=== PATIENT | male | born 1950 | race Hispanic/Latino ===

== ENCOUNTER 2024-11-26 05:40 | Observation (INO) | payer MEDICARE ==
[2024-11-25 11:15] VITALS: BP 157/58; PULSE 54; RESP 14; TEMP 97.2
[2024-11-25 11:28] LABS: IMMATURE GRANULOCYTE ABSOLUTE 0.02 K/uL (0-1); NUCLEATED RED BLOOD CELLS 0.0 % (0.0-0.19); PLATELET COUNT (AUTO) 196 K/uL (130-400); RED BLOOD CELL COUNT(AUTO) 4.88 MIL/uL (4.50-6.20); RED CELL DISTRIBUTION WIDTH 13.2 % (11.0-15.5); WHITE BLOOD COUNT (AUTO) 7.9 K/uL (4.8-10.8)
--- NOTE | 2024-11-25 11:30 | NUR ---
RE: IS INITIAL IS INITIAL TEACHING DONE BY RT GRETCHEN DURING PREOP.
[2024-11-25 11:32] LABS: APPEARANCE,URINE CLEAR (CLEAR); GLUCOSE, URINE (UA) NEGATIVE (NEGATIVE); LEUKOCYTE ESTERASE ,URINE NEGATIVE Leu/uL (NEGATIVE); NITRATE,URINE NEGATIVE (NEGATIVE); OCCULT BLOOD,URINE NEGATIVE (NEGATIVE)
[2024-11-25 11:35] LABS: ADD UA MICROSCOPIC NO
[2024-11-25 11:44] LABS: INR 1.02 (0.85-1.15)
--- NOTE | 2024-11-25 12:23 | EKG ---
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
--- NOTE | 2024-11-25 15:18 | NUR ---
RE: ASPIRIN INFORMED DR RIOS THAT PATIENT'S LAST DOSE OF ASPIRIN 81MG WAS 11/24/24 AT 2100. OK TO PROCEED.
[~2024-11-26] VITALS: Ht 160 cm; Wt 77.6 kg
[2024-11-26] VITALS (32 sets, daily range): BP systolic 114–154; BP diastolic 46–97; PULSE 51–74; RESP 16–18; TEMP 97.4–98.2; O2SAT 98
[~2024-11-26 05:40] MED LIST: AMLO-257 PO; ASPI-1443 PO; ATOR10 PO; HYDR12.54 PO; LOSA100T59 PO; METF-446 PO; METO-409 PO; TAMS-55 PO
[2024-11-26] MEDS: 0.9%NACL 1000ML 1,000 ML IV ONE (06:51)
[2024-11-26] MEDS ORDERED: LIDOCAINE PF 100MG/5ML (2%) SYRINGE 5ML ONE (07:29)
[2024-11-26] MEDS ORDERED: MIDAZOLAM HCL 1 MG/ML 2ML VIAL ONE (07:29)
[2024-11-26] MEDS ORDERED: NEOSTIGMINE METHYLSULFATE 1MG/ML IV ONE (07:32)
[2024-11-26] MEDS ORDERED: GLYCOPYRROLATE 0.2 MG/ML 5 ML VIAL ONE (07:32)
[2024-11-26] MEDS: TRANEXAMIC ACID 1000MG/10ML ONE ×2 (08:15→10:54)
[2024-11-26] MEDS: VANCOMYCIN 500MG+NS 100ML 100 ML IV ONE (09:10)
--- NOTE | 2024-11-26 10:27 | OP ---
Operative Note: DATE OF PROCEDURE: 11/26/24 SURGEON: DOLORES RIOS MD TREE WRAPPER: [Alex Yadav GEOMETRICIAN] ANESTHESIA: [General anesthesia plus regional block] ANESTHESIOLOGIST/CLAIMS AGENT RIGHT OF WAY: [Feroz Sullivan CLAIMS AGENT RIGHT OF WAY] PREOPERATIVE DIAGNOSIS: [Left Knee osteoarthritis] POSTOPERATIVE DIAGNOSIS: [Left knee osteoarthritis] IMPLANTS: [Biomet vanguard femur size 70 left PS. Tibia size 79 fixed cruciate. Tibial liner size 10 x 79/83. Patella size 34 X 9 asymmetric] PROCEDURE: [Left total knee arthroplasty] ESTIMATED BLOOD LOSS: [Less than 100 mL] INDICATIONS: [The patient is a 74-year-old male with a history of chronic pain to the left knee that has a longer responded to conservative treatment. The patient has been admitted for a left total knee arthroplasty. Procedure understood, risks, benefits and possible complications and the patient agreed to sign the consent form.] DESCRIPTION OF PROCEDURE: [After adequate general anesthesia was achieved and regional block obtained the left lower extremity was prepped and draped in the usual manner previous placement of the tourniquet in the proximal thigh. The extremity was then elevated and exsanguinated with an Esmarch bandage and the tourniquet inflated to 300 mmHg the Esmarch band been then removed. With the knee in flexion a longitudinal incision was then made in the anterior aspect through the skin followed by dissection of the subcutaneous tissue. A bone infusion needle was then inserted just medial to the tibial tuberosity and through this needle we injected into the bone a solution of normal saline 50 mL mixed with 500 mg of vancomycin. The needle was removed. A paramedian approach was then made with the Bovie cautery cutting through the quadriceps tendon, medial patellar retinaculum and patellar tendon retinaculum. The retropatellar tendon fat was then excised and the soft tissue elements of the tibia were severiano vated subperiosteally and retractors were applied medially and laterally . The anterior and posterior cruciate ligaments were resected. With the use of a drill a starting hole was made in the distal femur entering the intramedullary canal and then after removal of the drill an intramedullary guide was inserted with a 5 degree valgus block that touched the distal femur and to this the distal femoral cutting guide was then applied anteriorly and was secured to the distal femur with the use of pins. The intramedullary guide was then removed and with the use of the oscillating saw we proceeded to resect the distal femur removing the fragments and the guide. The femoral sizer was then applied distally and drill holes were made removing the sizer and the 4-in-1 cutting block was then inserted and the anterior, posterior and chamfer cuts were made removing the fragments and the block. The PS cutting guide was then inserted and the intercondylar cut was made removing the fragment and the guide. The posterior cruciate ligament retractor was then inserted posterior to the tibia and this was brought forward proceeding then to apply the external tibial alignment guide and secured the proximal cutting guide to the tibia with the use of pins. With the use of the oscillating saw the proximal cut to the tibia tibia was made. The bone fragment was removed and the trial tibia plate was chosen. At this point the menisci were removed sharply and with the use of the curved osteotome the posterior osteophytes of the femur were removed. The trial components were then inserted at the femur and tibia with a trial tibial liner bringing the knee into extension noticing that the patient had a very stable knee in flexion, extension and with valgus and varus stress. The knee was ma intained in extension and the patella was then addressed proceeding to measure its thickness and then with the use of the oscillating saw we removed 9 mm from the articular surface and restored the height with application of a trial component after 3 peg holes were made. The patellofemoral ligament was removed and then the patellofemoral tracking was checked noticing to be normal. At this moment all the components were removed, the tibia after the metaphyseal defect was created and while cement was being mixed on the back table we proceeded to irrigate the joint with antibiotic solution and then cover the entry to the femoral canal with a bone plug. Once the cement was ready we proceeded to apply it first to the tibia surface inserting the final component and then to the femoral surface and inserted the final component removing the excess cement and then applying a trial liner bringing the knee into extension for compression. Then we proceeded to irrigate the patella surface and dried it applying then bone cement and the final patellar component was inserted and was secured with application of a clamp. The joint was irrigated with a warm diluted Betadine solution while the cement dried followed by irrigation with antibiotic solution. The trial liner was removed as well as the patellar clamp and we proceeded then to irrigate the posterior aspect of the joint to remove all the remaining debris and the final tibial liner was inserted and locked against the tibia. The range of motion was checked and noticed to be adequate with full extension and flexion, no laxity in valgus or varus stress and with adequate patellofemoral tracking. The patient had no anterior or posterior drawer. The tourniquet was then deflated and this was followed by hemostasis and the wound was then closed with approximation of the quadriceps tendon, patellar retinaculum and patellar tendon retinaculum with #1 Vicryl close stitches alternating with #1 Ethibond stitches, and closure of the subcutaneous tissue with 2-0 Monocryl inverted stit ches and the skin was closed with 3-0 Monocryl subcuticularly. The wound was covered with a suction dressing followed by application of an Je bandage for compression and the drapes were then removed transferring the patient to the hospital bed and taken to recovery room for follow-up by anesthesia. There were no complications during the procedure.] DOLORES RIOS MD Nov 26, 2024 10:27
[2024-11-26] MEDS: 0.9%NACL 1000ML 1,000 ML IV SCH (10:30)
[2024-11-26] MEDS ORDERED: FERROUS FUMARATE 324 MG TABLET PO PRN (10:30)
[2024-11-26] MEDS ORDERED: PoTASSium chl 10% ELIXIR 20MEQ 20 MEQ/15 ML UDCUP PO PRN (10:30)
[2024-11-26] MEDS ORDERED: CALCIUM CARB 500MG PO PRN (10:30)
[2024-11-26] MEDS: HYDROcodone/APAP 5/325 1 TAB TABLET ONE (12:35)
[2024-11-26] MEDS: HYDROcodone/APAP 5/325 1 TAB TABLET PO PRN (12:35)
--- NOTE | 2024-11-26 14:30 | NUR ---
PATIENT ARRIVED TO THE UNIT. VS: 140/75, 57 BPM, 97% SP02 AT 3 L NC. A&OX4. CAP REFILL <3 SECS ON LLE. BLE PULSES STRONG AND PRESENT. 4/5 PAIN REPORTED. CALL LIGHT WITHIN REACH. BED LOCKED AND LOW.
[2024-11-26] MEDS ORDERED: ASPI-1443 PO (14:39)
--- NOTE | 2024-11-26 17:46 | NUR ---
PT WAS REINFORCED TEACHING ON THE IMPORTANCE OF THE USE OF THE IS Q2H 10 BREATHS. PT VERBALIZED UNDERSTANDING. ASSESSED PT FOR PAIN. PT VERBALIZED 0/10 PAIN. PT WAS EDUCATED ON THE IMPORTANCE OF MANAGING PAIN AND TO CALL THE NURSE SOON PAIN IS PRESENT TO MAINTAIN BELOW A 4. PT VERBALIZED UNDERSTANDING. NO FURTHER NEEDS ADDRESSED.
[2024-11-26] MEDS: ASPIRIN 81 MG EC TAB PO SCH (22:07)
[2024-11-26] MEDS: FAMOTIDINE 20MG TAB PO SCH (22:08)
[2024-11-27 02:29] VITALS: O2SAT 93
[2024-11-27 04:38] VITALS: BP 111/70; PULSE 75; RESP 18; TEMP 98.1
[2024-11-27 05:09] LABS: NUCLEATED RED BLOOD CELLS 0.0 % (0.0-0.19); PLATELET COUNT (AUTO) 149.0 K/uL (130-400); RED BLOOD CELL COUNT(AUTO) 3.66 MIL/uL (4.50-6.20); RED CELL DISTRIBUTION WIDTH 13.2 % (11.0-15.5); WHITE BLOOD COUNT (AUTO) 13.4 K/uL (4.8-10.8)
[2024-11-27 05:27] LABS: CREATININE 1.2 mg/dL (0.5-1.3); GLOMERULAR FILTR. RATE CALC 64.0 mL/min (>90); GLUCOSE,RANDOM 159.0 mg/dL (70-105); SODIUM SERUM 137.0 mmol/L (136-145); UREA NITROGEN, BLOOD 16.0 mg/dL (7-18)
[2024-11-27] MEDS: PoTASSium chloRIDE 20MEQ ER 20 MEQ ERTAB PO PRN (05:50)
[2024-11-27 07:44] VITALS: BP 142/76; PULSE 69; RESP 18; TEMP 98.1
--- NOTE | 2024-11-27 07:54 | PN ---
Ortho postop day one. This morning the patient is awake alert and oriented. Reporting no significant pain. He is in no acute distress. He is seated out of bed in a chair enjoying his breakfast. He has a footstool and he has been alternating extension and flexion while seated. Vital signs have been stable he is afebrile. Laboratory results reviewed. Noted to have a drop in hemoglobin and hematocrit as expected after total knee arthroplasty. Patient is currently asymptomatic we will continue to observe and treat per protocol as necessary. Operative findings discussed with the patient. He is voiding on his own. He is already passing gas but no BM yet. Dressing intact corey dressing flashing green. Bilateral lower extremity SCD stockings present. The gastrocnemius a soft nontender. Ice present to the extremity. And ambulated yesterday with physical therapy about 10 ft and is pending further physical therapy this morning. Anticipated discharge goal is home health/PT. Assessment: Status post left total knee arthroplasty. Acute postoperative blood loss anemia. Plan: Continue with Dr. Wilder TKA protocol and discharge planning. Acute postoperative blood loss anemia addressed with the protocol as necessary Vitals/Labs Vital Signs Date Time Temp Pulse Resp B/P (MAP) Pulse Ox O2 Delivery O2 Flow Rate FiO2 11/27/24 07:44 98.1 69 18 142/76 94 Room Air 11/27/24 02:29 3 32 Laboratory Tests 11/27/24 05:00 Medications Current Medications Cefazolin Sodium 2 gm STK-MED ONCE .ROUTE Last administered on 11/26/24at 08:18; Start 11/26/24 at 06:25; Stop 11/26/24 at 06:25; Status DC Sodium Chloride 1,000 ml @ As Directed STK-MED ONCE IV Last administered on 11/26/24at 06:51; Start 11/26/24 at 06:25; Stop 11/26/24 at 06:25; Status DC Midazolam HCl 2 mg STK-MED ONCE .ROUTE; Start 11/26/24 at 07:29; Stop 11/26/24 at 07:29; Status DC Lidocaine HCl 100 mg STK-MED ONCE .ROUTE; Start 11/26/24 at 07:29; Stop 11/26/24 at 07:29; Status DC Propofol 200 mg STK-MED ONCE IV; Start 11/26/24 at 07:30; Stop 11/26/24 at 07:30; Status DC Rocuronium [place] 50 mg STK-MED ONCE .ROUTE; Start 11/26/24 at 07:30; Stop 11/26/24 at 07:30; Status DC Fentanyl Citrate 100 mcg STK-MED ONCE .ROUTE; Start 11/26/24 at 07:31; Stop 11/26/24 at 07:31; Status DC Dexamethasone Sodium Phosphate 4 mg STK-MED ONCE .ROUTE; Start 11/26/24 at 07:32; Stop 11/26/24 at 07:32; Status DC Ondansetron HCl 4 mg STK-MED ONCE .ROUTE; Start 11/26/24 at 07:32; Stop 11/26/24 at 07:32; Status DC Glycopyrrolate 1 mg STK-MED ONCE .ROUTE; Start 11/26/24 at 07:32; Stop 11/26/24 at 07:32; Status DC Neostigmine Methylsulfate 10 mg STK-MED ONCE IV; Start 11/26/24 at 07:32; Stop 11/26/24 at 07:32; Status DC Ropivacaine 150 mg STK-MED ONCE .ROUTE; Start 11/26/24 at 07:38; Stop 11/26/24 at 07:38; Status DC Acetaminophen 100 ml @ As Directed STK-MED ONCE .ROUTE; Start 11/26/24 at 07:38; Stop 11/26/24 at 07:39; Status DC Ketamine HCl 50 mg STK-MED ONCE .ROUTE; Start 11/26/24 at 07:39; Stop 11/26/24 at 07:39; Status DC Tranexamic Acid 1,000 mg STK-MED ONCE .ROUTE Last administered on 11/26/24at 08:15; Start 11/26/24 at 07:56; Stop 11/26/24 at 07:55; Status DC Cefazolin Sodium 1 gm STK-MED ONCE .ROUTE Last administered on 11/26/24at 09:06; Start 11/26/24 at 08:10; Stop 11/26/24 at 08:11; Status DC Vancomycin HCl 100 ml @ As Directed STK-MED ONCE IV Last administered on 11/26/24at 09:10; Start 11/26/24 at 08:11; Stop 11/26/24 at 08:11; Status DC Sodium Chloride 1,000 ml @ 100 mls/hr Q10H IV Last administered on 11/26/24at 22:09; Start 11/26/24 at 10:30; Stop 11/27/24 at 10:29 Polyethylene Glycol 17 gm DAILY PO; Start 11/27/24 at 09:00; Stop 12/27/24 at 08:59 Bisacodyl 10 mg DAILY PRN RC; Start 11/29/24 at 10:30; Stop 12/29/24 at 10:29 Ketorolac Tromethamine 15 mg Q6H PRN IV Last administered on 11/26/24at 14:55; Start 11/26/24 at 10:30; Stop 12/01/24 at 10:29 Famotidine 20 mg BID PO Last administered on 11/26/24at 22:08; Start 11/26/24 at 21:00; Stop 12/26/24 at 20:59 Tamsulosin HCl 0.4 mg HS PO Last administered on 11/26/24at 22:07; Start 11/26/24 at 21:00; Stop 12/26/24 at 20:59 Ferrous Fumarate 324 mg DAILY PRN PO; Start 11/26/24 at 10:30; Stop 12/26/24 at 10:29 Temazepam 15 mg HS PRN PO; Start 11/26/24 at 10:30; Stop 12/26/24 at 10:29 Ondansetron HCl 4 mg Q6H PRN IVP; Start 11/26/24 at 10:30; Stop 12/26/24 at 10:29 Calcium Carbonate 500 mg Q12H PRN PO; Start 11/26/24 at 10:30; Stop 12/26/24 at 10:29 Diphenhydramine HCl 25 mg Q6H PRN IVP; Start 11/26/24 at 10:30; Stop 12/26/24 at 10:29 Insulin Human Regular INSULIN SLIDING SCAL... ACHS SQ Last administered on 11/26/24at 22:05; Start 11/26/24 at 11:30; Stop 12/26/24 at 11:29 Cefazolin Sodium 2 gm Q8H IVP Last administered on 11/26/24at 23:23; Start 11/26/24 at 15:30; Stop 11/26/24 at 23:31; Status DC Potassium Chloride 100 ml @ 100 mls/hr AD PRN IV; Start 11/26/24 at 10:30; Stop 12/26/24 at 10:29 Potassium Chloride 20 meq AD PRN PO; Start 11/26/24 at 10:30; Stop 12/26/24 at 10:29 Potassium Chloride 20 meq AD PRN PO Last administered on 11/27/24at 05:50; Start 11/26/24 at 10:30; Stop 12/26/24 at 10:29 Celecoxib 200 mg BID PO Last administered on 11/26/24at 22:07; Start 11/26/24 at 21:00; Stop 12/26/24 at 20:59 Acetaminophen/ Hydrocodone Bitart Q4H PRN PO Last administered on 11/26/24at 18:53; Start 11/26/24 at 10:30; Stop 12/01/24 at 10:29 Aspirin 81 mg BID PO Last administered on 11/26/24at 22:07; Start 11/26/24 at 21:00; Stop 12/26/24 at 20:59 Fentanyl Citrate 100 mcg STK-MED ONCE .ROUTE; Start 11/26/24 at 10:31; Stop 11/26/24 at 10:31; Status DC Tranexamic Acid 1,000 mg STK-MED ONCE .ROUTE Last administered on 11/26/24at 10:54; Start 11/26/24 at 10:50; Stop 11/26/24 at 10:50; Status DC Fentanyl Citrate 100 mcg STK-MED ONCE .ROUTE Last administered on 11/26/24at 11:07; Start 11/26/24 at 11:03; Stop 11/26/24 at 11:04; Status DC Acetaminophen/ Hydrocodone Bitart 1 tab STK-MED ONCE .ROUTE; Start 11/26/24 at 12:32; Stop 11/26/24 at 12:32; Status DC Amlodipine Besylate 5 mg DAILY PO; Start 11/27/24 at 09:00; Stop 12/27/24 at 08:59 Atorvastatin Calcium 10 mg DAILY PO; Start 11/27/24 at 09:00; Stop 12/27/24 at 08:59 Losartan Potassium 100 mg HS PO Last administered on 11/26/24at 22:07; Start 11/26/24 at 21:00; Stop 12/26/24 at 20:59 Tamsulosin HCl 0.4 mg DAILY PO; Start 11/27/24 at 09:00; Stop 12/27/24 at 08:59; Status UNV Hydrochlorothiazide 12.5 mg DAILY PO; Start 11/27/24 at 09:00; Stop 12/27/24 at 08:59 Metformin HCl 1,000 mg BIDMEALS PO Last administered on 11/26/24at 17:39; Start 11/26/24 at 17:00; Stop 12/26/24 at 16:59 Metoprolol Succinate 100 mg BID PO Last administered on 11/26/24at 22:08; Start 11/26/24 at 21:00; Stop 12/26/24 at 20:59 BERNICE GRANDA NP Nov 27, 2024 07:54
[2024-11-27 09:10] VITALS: O2SAT 94
[2024-11-27] MEDS: amLODIPine 5 MG TAB PO SCH (09:11)
[2024-11-27 11:15] VITALS: BP 144/66; PULSE 63; RESP 16; TEMP 97.8
--- NOTE | 2024-11-27 11:40 | NUR ---
[facility] CM MET WITH PT AND SPOUSE THIS MORNING, INITIAL ASSESSMENT DONE. PATIENT IS INDEPENDENT PRIOR TO SURGERY, LIVES AT HOME WITH HIS , BROTHER IN LAW LIVES WITH THEM AT HOME. AT HOME PATIENT HAS A SHOWER CHAIR, GLUCOMETER, PO MED FOR DM, BPM. DENIES ANY OTHER EQUIPMENT/SERVICES. FEELS SAFE TO GO BACK HOME, STILL DRIVE, SPOUSE AND BROTHER IN LAW ABLE TO ASSIST WITH TRANSPORTATION NECESSARY. DISCUSSED MD RECOMMENDATIONS FOR HOME W/HH PT WILL NEED PT WELL A STANDARD WALKER AT HOME. PT AGREEABLE, CONSENT SIGNED DAVIN FOR ANY IN NETWORK HH AND DME. [facility] HOME W/HH AND DME ONCE APPROVED. CM TO CONTINUE TO FOLLOW UP. Addendum: 11/27/24 at 1453 by ZOE VALDEZ LVN Amended: Links added.
[2024-11-27 15:24] VITALS: BP 137/71; PULSE 60; RESP 17; TEMP 97.9
--- NOTE | 2024-11-27 15:30 | NUR ---
CM NOTE: PETRONA GARCIA CM MET WITH PT THIS AFTERNOON, PETRONA GARCIA CONSENT SIGNED IN CASE PATIENT WILL DC HOME TODAY/TOMORROW. PT AWARE PENDING APPROVAL AND DELIVERY FOR OWN STANDARD WALKER W/[facility] DME. INSTRUCTED PT TO RETURN BORROWED HOSPITAL WALKER IN ED W/SECURITY ONCE OWN WALKER RECEIVED AT HOME. PT VERBALIZED UNDERSTANDING. CM TO CONTINUE TO FOLLOW UP.
[2024-11-27] MEDS ORDERED: HYDR-4060 PO (16:34)
[2024-11-27] MEDS ORDERED: ASPI-1443 PO (16:34)
--- NOTE | 2024-11-27 16:43 | PN ---
Postop day 2. Status post left total knee arthroplasty Signs haylie, afebrile The patient did very well with the physical therapy today His pain control is adequate Is eating well, has voided. Awake, alert and oriented x3. In no respiratory distress Dressing intact. Distal neurovascular exam normal. The knee has mild edema. Assessment: Status post left total knee arthroplasty Plan: The patient will be dismissed today. Follow-up in the office in three weeks Vitals/Labs Vital Signs Date Time Temp Pulse Resp B/P (MAP) Pulse Ox O2 Delivery O2 Flow Rate FiO2 11/27/24 15:24 97.9 60 17 137/71 96 Room Air 11/27/24 09:10 0 21 Laboratory Tests 11/27/24 05:00 Medications Current Medications Cefazolin Sodium 2 gm STK-MED ONCE .ROUTE Last administered on 11/26/24at 08:18; Start 11/26/24 at 06:25; Stop 11/26/24 at 06:25; Status DC Sodium Chloride 1,000 ml @ As Directed STK-MED ONCE IV Last administered on 11/26/24at 06:51; Start 11/26/24 at 06:25; Stop 11/26/24 at 06:25; Status DC Midazolam HCl 2 mg STK-MED ONCE .ROUTE; Start 11/26/24 at 07:29; Stop 11/26/24 at 07:29; Status DC Lidocaine HCl 100 mg STK-MED ONCE .ROUTE; Start 11/26/24 at 07:29; Stop 11/26/24 at 07:29; Status DC Propofol 200 mg STK-MED ONCE IV; Start 11/26/24 at 07:30; Stop 11/26/24 at 07:30; Status DC Rocuronium [place] 50 mg STK-MED ONCE .ROUTE; Start 11/26/24 at 07:30; Stop 11/26/24 at 07:30; Status DC Fentanyl Citrate 100 mcg STK-MED ONCE .ROUTE; Start 11/26/24 at 07:31; Stop 11/26/24 at 07:31; Status DC Dexamethasone Sodium Phosphate 4 mg STK-MED ONCE .ROUTE; Start 11/26/24 at 07:32; Stop 11/26/24 at 07:32; Status DC Ondansetron HCl 4 mg STK-MED ONCE .ROUTE; Start 11/26/24 at 07:32; Stop 11/26/24 at 07:32; Status DC Glycopyrrolate 1 mg STK-MED ONCE .ROUTE; Start 11/26/24 at 07:32; Stop 11/26/24 at 07:32; Status DC Neostigmine Methylsulfate 10 mg STK-MED ONCE IV; Start 11/26/24 at 07:32; Stop 11/26/24 at 07:32; Status DC Ropivacaine 150 mg STK-MED ONCE .ROUTE; Start 11/26/24 at 07:38; Stop 11/26/24 at 07:38; Status DC Acetaminophen 100 ml @ As Directed STK-MED ONCE .ROUTE; Start 11/26/24 at 07:38; Stop 11/26/24 at 07:39; Status DC Ketamine HCl 50 mg STK-MED ONCE .ROUTE; Start 11/26/24 at 07:39; Stop 11/26/24 at 07:39; Status DC Tranexamic Acid 1,000 mg STK-MED ONCE .ROUTE Last administered on 11/26/24at 08:15; Start 11/26/24 at 07:56; Stop 11/26/24 at 07:55; Status DC Cefazolin Sodium 1 gm STK-MED ONCE .ROUTE Last administered on 11/26/24at 09:06; Start 11/26/24 at 08:10; Stop 11/26/24 at 08:11; Status DC Vancomycin HCl 100 ml @ As Directed STK-MED ONCE IV Last administered on 11/26/24at 09:10; Start 11/26/24 at 08:11; Stop 11/26/24 at 08:11; Status DC Sodium Chloride 1,000 ml @ 100 mls/hr Q10H IV Last administered on 11/26/24at 22:09; Start 11/26/24 at 10:30; Stop 11/27/24 at 10:29; Status DC Polyethylene Glycol 17 gm DAILY PO Last administered on 11/27/24at 09:10; Start 11/27/24 at 09:00; Stop 12/27/24 at 08:59 Bisacodyl 10 mg DAILY PRN RC; Start 11/29/24 at 10:30; Stop 12/29/24 at 10:29 Ketorolac Tromethamine 15 mg Q6H PRN IV Last administered on 11/26/24at 14:55; Start 11/26/24 at 10:30; Stop 12/01/24 at 10:29 Famotidine 20 mg BID PO Last administered on 11/27/24at 09:11; Start 11/26/24 at 21:00; Stop 12/26/24 at 20:59 Tamsulosin HCl 0.4 mg HS PO Last administered on 11/26/24at 22:07; Start 11/26/24 at 21:00; Stop 12/26/24 at 20:59 Ferrous Fumarate 324 mg DAILY PRN PO; Start 11/26/24 at 10:30; Stop 12/26/24 at 10:29 Temazepam 15 mg HS PRN PO; Start 11/26/24 at 10:30; Stop 12/26/24 at 10:29 Ondansetron HCl 4 mg Q6H PRN IVP; Start 11/26/24 at 10:30; Stop 12/26/24 at 10:29 Calcium Carbonate 500 mg Q12H PRN PO; Start 11/26/24 at 10:30; Stop 12/26/24 at 10:29 Diphenhydramine HCl 25 mg Q6H PRN IVP; Start 11/26/24 at 10:30; Stop 12/26/24 at 10:29 Insulin Human Regular INSULIN SLIDING SCAL... ACHS SQ Last administered on 11/26/24at 22:05; Start 11/26/24 at 11:30; Stop 12/26/24 at 11:29 Cefazolin Sodium 2 gm Q8H IVP Last administered on 11/26/24at 23:23; Start 11/26/24 at 15:30; Stop 11/26/24 at 23:31; Status DC Potassium Chloride 100 ml @ 100 mls/hr AD PRN IV; Start 11/26/24 at 10:30; Stop 12/26/24 at 10:29 Potassium Chloride 20 meq AD PRN PO; Start 11/26/24 at 10:30; Stop 12/26/24 at 10:29 Potassium Chloride 20 meq AD PRN PO Last administered on 11/27/24at 13:02; Start 11/26/24 at 10:30; Stop 12/26/24 at 10:29 Celecoxib 200 mg BID PO Last administered on 11/27/24at 09:11; Start 11/26/24 at 21:00; Stop 12/26/24 at 20:59 Acetaminophen/ Hydrocodone Bitart Q4H PRN PO Last administered on 11/27/24at 13:03; Start 11/26/24 at 10:30; Stop 12/01/24 at 10:29 Aspirin 81 mg BID PO Last administered on 11/27/24at 09:11; Start 11/26/24 at 21:00; Stop 12/26/24 at 20:59 Fentanyl Citrate 100 mcg STK-MED ONCE .ROUTE; Start 11/26/24 at 10:31; Stop 11/26/24 at 10:31; Status DC Tranexamic Acid 1,000 mg STK-MED ONCE .ROUTE Last administered on 11/26/24at 10:54; Start 11/26/24 at 10:50; Stop 11/26/24 at 10:50; Status DC Fentanyl Citrate 100 mcg STK-MED ONCE .ROUTE Last administered on 11/26/24at 11:07; Start 11/26/24 at 11:03; Stop 11/26/24 at 11:04; Status DC Acetaminophen/ Hydrocodone Bitart 1 tab STK-MED ONCE .ROUTE; Start 11/26/24 at 12:32; Stop 11/26/24 at 12:32; Status DC Amlodipine Besylate 5 mg DAILY PO Last administered on 11/27/24at 09:11; Start 11/27/24 at 09:00; Stop 12/27/24 at 08:59 Atorvastatin Calcium 10 mg HS PO; Start 11/27/24 at 21:00; Stop 12/27/24 at 20:59 Losartan Potassium 100 mg HS PO Last administered on 11/26/24at 22:07; Start 11/26/24 at 21:00; Stop 12/26/24 at 20:59 Tamsulosin HCl 0.4 mg DAILY PO; Start 11/27/24 at 09:00; Stop 12/27/24 at 08:59; Status UNV Hydrochlorothiazide 12.5 mg DAILY PO Last administered on 11/27/24at 09:10; Start 11/27/24 at 09:00; Stop 12/27/24 at 08:59 Metformin HCl 1,000 mg BIDMEALS PO Last administered on 11/27/24at 09:10; Start 11/26/24 at 17:00; Stop 12/26/24 at 16:59 Metoprolol Succinate 100 mg BID PO Last administered on 11/27/24at 09:11; Start 11/26/24 at 21:00; Stop 12/26/24 at 20:59 DOLORES RIOS MD Nov 27, 2024 16:43
--- NOTE | 2024-11-27 18:00 | NUR ---
ORTHO COORDINATOR: TEACHING REGARDING DVT AND PNEUMONIA PREVENTION, PAIN EXPECTATIONS AND PAIN MANAGEMENT. PATIENT UP TO CHAIR IN STREET CLOTHES. HOSPITAL AREA MECHANIC UTILIZED, PATIENT UPPER SORBIAN SPEAKING ONLY. VISH SYSTEM REVIEWED. INSTRUCTED PATIENT SYSTEM SHOULD BE REMOVED 7 DAYS FROM THE DATE OF SURGERY BY HOME HEALTH. VISH SYSTEM FUNCTIONING, GREEN LIGHT FLASHING. INCENTIVE SPIROMETER PACKED. PATIENT VERBALIZED PROPER FREQUENCY OF USE FOR INCENTIVE SPIROMETER. PATIENT RETURN DEMONSTRATED FOOT FLEXION AND EXTENSION EXERCISES, RATIONALE FOR BOTH PROVIDED. PATIENT PAIN MANAGEMENT STRATEGY REVIEWED. PATIENT REPORTS PAIN UNDER CONTROL TODAY. PATIENT REPORTS PAIN CONTROLLED. PATIENT INTENDS TO DISCHARGE HOME WITH HOME HEALTH PHYSICAL THERAPY. ENCOURAGED PATIENT TO CONTINUE PREMEDICATING PRIOR TO PHYSICAL THERAPY AND PERIODS OF HIGH ACTIVITY, TO CONTINUE USE OF INCENTIVE SPIROMETER UNTIL PRESURGERY ACTIVITY LEVEL REACHED, TO CONTINUE FOOT FLEXION AND EXTENSION EXERCISES, TO INCREASE AMBULATION AND MAINTAIN HYDRATION. PATIENT VERBALIZED UNDERSTANDING TO ALL INSTRUCTIONS. NO ADDITIONAL QUESTIONS AT THIS TIME.
--- NOTE | 2024-11-27 20:38 | NUR ---
PATIENT DISCHARGED PATIENT DISCHARGED TO HOME WITH HOME HEALTH. PERIPHERAL IV REMOVED WITH CATHETER INTACT. DRESSING TO LEFT KNEE CLEAN DRY AND INTACT. PATIENT REPORTS NO PAIN AT THIS TIME. MEDICATIONS FAXED TO PHARMACY. EDUCATION PROVIDED. PATIENT AWARE TO F/U WITH ORTHO CARE 12/18. PATIENT TAKEN DOWN BY WHEELCHAIR ALL BELONGINGS SENT WITH PATIENT. ATTEMPTED TO CALL REPORT TO [facility] MESSAGE LEFT WITH ANSWERING SERVICE. PENDING CALL BACK FROM [facility] OPENER NURSE.
--- NOTE | 2024-11-28 09:26 | NUR ---
[facility] CALLED BACK TO GET REPORT. REPORT GIVEN TO LYNN LI. ALL QUESTIONS AND CONCERNS ANSWERED.
== END 2024-11-27 18:46 | disposition home or self-care (01) ==
LOC: DAH 05:40 → DAHIP 05:41 → DAH 05:41 → 4CH 14:30
PROVIDERS: ADMIT Orthopaedic Surgery; ATTEND Orthopaedic Surgery
DX: M17.12 Unilateral primary osteoarthritis, left knee (principal); D62 Acute posthemorrhagic anemia; M25.562 Pain in left knee; I10 Essential (primary) hypertension; E11.9 Type 2 diabetes mellitus without complications; Z79.899 Other long term (current) drug therapy; Z98.890 Other specified postprocedural states
CPT/HCPCS: 85025; 85610; 87086; 81003; 36415 ×2; 93005; 87641; 27447; 96374; 96376; 96375; 82948 ×7; 97161; 97116 ×3; 97530 ×3; 80048; 85027; J1815 ×3; J1100; G0378 ×32; A4223 ×2; A4663; J7120; J3010 ×3; J0690 ×4; J3490 ×5; J7030; J2003; J2250; J2704; J2405; J2710; J2795; J1885; J3373; A9272; A4649 ×3; A4930; C1713; C1776; A5120; A4215 ×2; A4213; A4222; A4221; A4216